=== PATIENT | female | born 1960 | race American Indian/Alaskan Native ===

== ENCOUNTER 2021-08-25 11:15 | Day surgery (SDC) | payer MEDICAID ==
[2021-08-25 13:57] VITALS: BP 162/86
--- NOTE | 2021-08-25 14:35 | Short Stay Summary ---
Short Stay Documentation Date of service: 08/25/21 Narrative H&P: right parotid mass - Allergies and Medications Current Medications: Allergies No Known Allergies Allergy (Unverified 08/25/21 11:49) Home Medications Medication Instructions Recorded Confirmed Last Taken Type No Known Home Medications [No 08/25/21 08/25/21 Unknown History Reported Home Medications] - Physical exam General appearance: no acute distress HEENT: Other (palpable mass like lesion in right parotid region) - Brief post op/procedure progress note Date of procedure: 08/25/21 Pre-op diagnosis: right parotid mass Post-op diagnosis: same Procedure: US FNA Anesthesia: local Findings: 2.8cm cystic lesion with debris in right parotid gland Surgeon: KEZIA MARTINEZ Estimated blood loss: none Pathology: list (10cc of fluid and slides sent to pathology) Specimen disposition: to lab Condition: stable - Hospital course Hospital course: uneventful - Disposition Condition at discharge: Good Disposition: 01 HOME / SELF CARE / HOMELESS Short Stay Discharge Plan Follow up with: EDILIA PAN DO [Staff Physician] - 7 Days
--- NOTE | 2021-08-25 14:44 | Ultrasound Report ---
ULTRASOUND-GUIDED FNA OF RIGHT PAROTID GLAND HISTORY: Benign neoplasm of the parotid gland DESCRIPTION OF PROCEDURE: Informed consent was obtained. Sterile technique was utilized. 1% lidocaine was used for anesthesia. Initial scans of the right parotid gland demonstrate a 2.8 cm rounded predo minantly cystic lesion within the right parotid gland. Using ultrasound guidance, fine-needle aspirat ion was performed. Approximately 10 cc of yellow slightly cloudy fluid was aspirated. 2 microscope sl ides were made with a fluid. The remaining fluid was placed in satellite medium per pathology's reque st. There was complete evacuation of the cystic lesion. 2 additional fine-needle aspirations were obt ained of the collapsed lesion and placed on microscope slides as well. The patient tolerated the proc edure well and left radiology in stable condition. IMPRESSION: Successful ultrasound-guided fine-needle aspiration of a 2.8 cm cystic lesion in the right parotid gl and. Approximately 10 cc of yellow slightly cloudy fluid was aspirated. Signer Name: Jason Paulson Jr, MD Signed: 08/25/2021 2:40 PM Workstation Name: [id number]
== END 2021-08-25 14:20 | disposition home or self-care (01) ==
LOC: CATHLABREC 11:15 → US 11:15 → EDSTATUS 12:00 → CATHLABREC 14:20
PROVIDERS: ATTEND Surgery
DX: D11.0 Benign neoplasm of parotid gland (principal); D64.9 Anemia, unspecified; Z80.8 Family history of malignant neoplasm of other organs or systems; Z98.890 Other specified postprocedural states
CPT/HCPCS: 10005

== ENCOUNTER 2021-10-25 13:03 | Outpatient (CLI) | payer MEDICAID ==
--- NOTE | 2021-10-25 20:09 | Cat Scan Report ---
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 In addition to evaluation of axial source images sagittal and co lanre multiplanar reconstructions were produced and reviewed for this report. CONTRAST DOSE REPORT: Omnipaque 300: [address] imaging studies performed at this facility utilize dose modulation, iterative reconstruction o r weight based dosing, if appropriate, to obtain the lowest achievable radiation dose. FINDINGS: AIRWAY: No abnormalities are seen along the course of the airway. Nasopharynx, oropharynx, hypopharyn x, larynx and visualized portions of the subglottic airway all have an unremarkable appearance. LYMPH NODES: Large bilateral level 2 lymph nodes are observed in the jugulodigastric position. These maintain a normal ovoid shape and contain normal-appearing fatty talia. There is no indication of path ological lymphadenopathy. ORAL CAVITY/FLOOR OF MOUTH: No abnormalities are seen in evaluation of the oral cavity and tongue. Th e floor the mouth has a normal appearance. MAJOR SALIVARY GLANDS: There is a large predominantly cystic mass in the right parotid gland measurin g about 2.9 cm in transverse diameter by 3.2 cm in superior-inferior dimension. A thin but slightly i rregular rind of calcification or enhancement is observed along the periphery of the lesion. Differen tial diagnosis includes type I branchial cleft cyst, necrotic lymph node and benign or malignant paro tid neoplasm. NASAL CAVITY AND PARANASAL SINUSES: Evaluation of the nasal cavity reveals no abnormality. The parana camila sinuses are free from inflammatory mucosal disease. ORBITS:No abnormalities of the visualized portions of the orbits are identified. Globes, optic nerves , extraocular muscles and lacrimal glands have an unremarkable appearance. THYROID GLAND: The thyroid gland is normal in size and homogeneous in attenuation. No focal thyroid l esions are identified. TEMPORAL BONES:Mastoid air cells are normally pneumatized. CRANIOCERVICAL JUNCTION:No significant abnormality. CERVICAL SPINE: Evaluation of the cervical spine reveals no significant abnormality. Normal alignment is maintained. Mild anterior osteophyte formation is observed adjacent to the C4-5 and C5-6 discs. L BRITTANY APICES: Evaluation of the lung apices reveals no abnormality. There is no indication of lung nodu le or infiltrate. The visualized portions of the superior mediastinum have an unremarkable appearance . CONTRAST ADMINISTRATION: Enhancement of normal vascular structures is demonstrated. Increased attenua tion is seen along the periphery of the right parotid mass lesion as described above. This could be d ue to contrast enhancement or calcification. No additional areas of abnormal contrast enhancement are identified. IMPRESSION: 1. Large, predominantly cystic appearing mass in the right parotid gland. Differential diagnostic con siderations include type I branchial cleft cyst, necrotic lymph node and primary parotid tumor which could be benign or malignant. Signer Name: Chester Watts MD Signed: 10/25/2021 8:05 PM Workstation Name: [id number]
== END 2021-10-25 13:04 | disposition home or self-care (01) ==
LOC: CT 13:03
PROVIDERS: ATTEND Surgery
DX: D11.0 Benign neoplasm of parotid gland (principal); M25.78 Osteophyte, vertebrae
CPT/HCPCS: 70491; Q9967

== ENCOUNTER 2022-02-15 11:22 | Day surgery (SDC) | payer MEDICAID ==
--- NOTE | 2022-02-15 14:15 | Ultrasound Report ---
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 COMPARISON: CT soft tissue neck from 10/25/2021 PROCEDURE: The risks (including but not limited to bleeding and infection) and benefits were explain ed to the patient and informed consent was obtained. A time out procedure was performed. The proced ure site was prepped and draped in the usual sterile fashion and lidocaine was used for local anesthe mendoza. There is a mildly complex collection in the right parotid gland measuring 2.6 x 3.2 x 3.2 cm. Under u ltrasound guidance and utilizing a posterior approach, a 18-gauge needle was advanced into this colle ction and 10 mL of slightly complex brownish fluid was aspirated. 5 mL of the sample was sent for cyt opathology and the other 5 was sent for Gram stain, aerobic culture, and anaerobic culture. The patient tolerated the procedure well with no complications. IMPRESSION: Successful ultrasound-guided aspiration of a mildly complex cystic structure in the right parotid gland. Signer Name: Alex Wilson MD Signed: 02/15/2022 2:11 PM Workstation Name: [id number]
== END 2022-02-15 11:23 | disposition home or self-care (01) ==
LOC: CATHLABREC 11:22
PROVIDERS: ATTEND Surgery
DX: D11.0 Benign neoplasm of parotid gland (principal); D64.9 Anemia, unspecified; Z80.8 Family history of malignant neoplasm of other organs or systems; Z98.890 Other specified postprocedural states
CPT/HCPCS: 10005; 10030; 87075; 87116; 88112

== ENCOUNTER 2022-02-15 13:26 | Outpatient (CLI) | payer MEDICAID | END 2022-02-15 13:27 | disposition home or self-care (01) | LOC: LAB 13:26 | PROVIDERS: ATTEND Surgery | DX: D11.0 Benign neoplasm of parotid gland (principal) | CPT/HCPCS: 87075; 87116 ==